=== PATIENT | male | born 1980 | race American Indian/Alaskan Native ===

== ENCOUNTER 2017-07-22 20:28 | Inpatient (IN) | payer MEDICARE ==
--- NOTE | 2017-07-22 20:57 | Emergency Department Report ---
HPI - General Time Seen by Provider: 07/22/17 20:39 - HPI HPI: This is a 36 yo old -[place] male presents to the emergency department by EMS from home after he had some witnessed near syncope or syncopal episode by his . The patient currently is awake and alert and denies any chest pain , headache or any neurological deficits. An EKG was done by EMS that was sent to us that was concerning for a ST elevation TN. However by the time the EKG was visible to us, the patient was in the emergency department so we repeated the EKG here. It was discussed with interventional cardiology who did not feel that this was a typical ST elevation TN since the patient is having no chest pain. We will give a heparin bolus, do a cardiac workup and repeat EKG in 30 minutes. ED Past Medical Hx - Medications Home Medications: Home Medications Medication Instructions Recorded Confirmed Last Taken Type No Known Home Medications [No 07/22/17 07/22/17 Unknown History Reported Home Medications] ED Review of Systems ROS: Stated complaint: NEAR SYNCOPE Other details as noted in HPI Comment: All other systems reviewed and negative Constitutional: denies: chills, fever Eyes: denies: eye pain, eye discharge, vision change ENT: denies: ear pain, throat pain Respiratory: denies: cough, shortness of breath, wheezing Cardiovascular: syncope. denies: chest pain, palpitations Gastrointestinal: denies: abdominal pain, nausea, diarrhea Genitourinary: denies: urgency, dysuria Musculoskeletal: denies: back pain, joint swelling, arthralgia Skin: denies: rash, lesions Neurological: denies: headache, weakness, paresthesias Physical Exam - Physical Exam Physical Exam: GENERAL: The patient is well-developed well-nourished. Patient appears much older than stated age. HENT: Normocephalic. Atraumatic. Patient has moist mucous membranes. Patient is missing teeth and has poor dentition. EYES: Extraocular motions are intact. Pupils equal reactive to light bilaterally. NECK: Supple. Trachea is midline. CHEST/LUNGS: Clear to auscultation. There is no respiratory distress noted. HEART/CARDIOVASCULAR: Regular. There is no tachycardia. There is no gallop rub or murmur. ABDOMEN: Abdomen is soft, nontender. Patient has normal bowel sounds. There is no abdominal distention. SKIN: Skin is warm and dry. NEURO: The patient is awake, alert, and oriented. The patient is cooperative. The patient has no focal neurologic deficits. The patient has normal speech. Cranial nerves II through XII grossly intact. MUSCULOSKELETAL: There is no tenderness or deformity. There is no limitation range of motion. There is no evidence of acute injury. ED Course - Consultations Consultation #1: 07/23/17 01:29 I had spoken to the television receiver analyzer, Dr. Muñoz, shortly after the EMS EKG and the initial EKG here in the emergency department. Despite the ST elevations seen in the inferior and lateral leads, he did not feel that the patient had a STEMI or required emergent heart catheterization. He felt that the EMS EKG and even this first EKG appeared more consistent with possible early pericarditis. The plan was to give the patient a heparin bolus without drip and repeat EKG in 30 minutes to 1 hour. The second EKG still showed some ST elevations, more so in lead 2 and the inferior leads but once again no reciprocal depressions. This EKG was once again shown to Dr. Muñoz who did not feel that it was consistent with a STEMI and thought that this could be more consistent with a early repolarization. The patient has not had any chest pain or shortness of breath throughout his ED course. He has not shown any focal, motor or sensory deficits and his cranial nerves have been intact. Chest x-ray does not show any acute process. CT of the head did not show any bleed, shift, mass or any acute process. However with the syncopal episode and the abnormal EKGs, the patient will be admitted to the hospital for further evaluation and treatment. ED Medical Decision Making - Lab Data Result diagrams: 07/22/17 Unknown 07/22/17 Unknown - EKG Data -: EKG Interpreted by Me EKG shows normal: sinus rhythm, axis, intervals, QRS complexes, ST-T waves ( there is some mild ST elevation to the inferior and lateral leads but no reciprocal depressions. Normal intervals.) Rate: normal - EKG Data When compared to previous EKG there are: previous EKG unavailable Interpretation: other (sinus rhythm, 83 bpm, there is some ST elevation throughout the lateral and inferior leads but no reciprocal depressions.) - Radiology Data Radiology results: report reviewed, image reviewed interpreted by me: Chest x-ray does not show any acute process. There are no pleural effusions, obvious pneumonia and there is no pneumothorax. EXAM: CT HEAD/BRAIN WO CON HISTORY: Syncope TECHNIQUE: CT head without contrast PRIORS: None. FINDINGS: No acute intra-axial or extra-axial hemorrhage is identified. There is no evidence of midline shift or mass effect. The ventricles and sulci are within normal limits. Dominguez-white matter differentiation is intact. No acute parenchymal abnormalities seen. Bony calvarium is grossly intact. Visualized portions of the mastoids and paranasal sinuses are unremarkable. IMPRESSION: Negative CT head Transcribed By: GLEN Dictated By: ISMA MATOS MD Electronically Authenticated By: ISMA MATOS MD Signed Date/Time: 07/22/171916 - Medical Decision Making This patient originally presented for a syncopal or near syncopal episode. Since he has been in the emergency department he has been awake and alert and in no acute distress. He has not complained of any chest pain or any other symptoms at this time. The EKG was sent by EMS prior to arrival that had some concern for ST elevation TN. By the Time we were able to see this EKG he was in the emergency department so we repeated the EKG and once again it showed some concern for ST elevation in the inferior and lateral leads. As per the consultation section, the television receiver analyzer was notified and it was not deemed to be a code STEMI. The patient was given heparin bolus and later EKG was repeated. It was unchanged but once again did not appear to be consistent with a STEMI or need for emergent catheterization. Chest x-ray does not show any acute process. CT head does not show any acute process. Labs up and mostly unremarkable. However the patient will be admitted to the hospital for further evaluation and treatment - Differential Diagnosis TN, PE, CVA, TIA, seizure Critical Care Time: No Critical care attestation.: If time is entered above; I have spent that time in minutes in the direct care of this critically ill patient, excluding procedure time. ED Disposition Clinical Impression: Abnormal EKG Syncope Qualifiers: Syncope type: unspecified Qualified Code(s): R55 - Syncope and collapse Disposition: OP ADMIT IP TO THIS HOSP Is pt being admited?: Yes Does the pt Need Aspirin: Yes Condition: Stable Instructions: Syncope (ED) Time of Disposition: 01:41
[2017-07-22] MEDS ORDERED: HEPARIN 10,000 UNITS/10 ML IV ONE (21:01)
[2017-07-22 21:12] LABS: Basophils % (Auto) 1.6 % (0.0-1.8); Eosinophils % (Auto) 0.9 % (0.0-4.3); Hematocrit 34.3 % (35.5-45.6); Hemoglobin 11.2 gm/dl (11.8-15.2); Mean Corpuscular HGB Conc 33 % (32-34); Mean Corpuscular Hemoglobin 30 pg (28-32); Mean Corpuscular Volume 92 fl (84-94); Platelet Count 206 K/mm3 (140-440); Red Blood Count 3.74 M/mm3 (3.65-5.03); Red Cell Distribution Width 14.3 % (13.2-15.2); White Blood Count 4.6 K/mm3 (4.5-11.0)
[2017-07-22 21:13] LABS: INR 1.15 (0.87-1.13); Partial Thromboplastin Time 24.1 Sec. (24.2-36.6)
[2017-07-22 21:27] LABS: Alanine Aminotransferase 16 units/L (7-56); Albumin 3.7 g/dL (3.9-5); Albumin/Globulin Ratio 1.3 %; Alkaline Phosphatase 44 units/L (35-129); Anion Gap 21 mmol/L; BUN/Creatinine Ratio 10; Blood Urea Nitrogen 7 mg/dL (9-20); Calcium 7.8 mg/dL (8.4-10.2); Carbon Dioxide 21 mmol/L (22-30); Chloride 91.7 mmol/L (98-107); Glucose 134 mg/dL (75-100); Potassium 3.9 mmol/L (3.6-5.0); Sodium 130 mmol/L (137-145); Total Protein 6.6 g/dL (6.3-8.2)
--- NOTE | 2017-07-22 21:57 | XRay Report ---
FINAL REPORT EXAM: XR CHEST 1V AP HISTORY: Chest Pain TECHNIQUE: Single AP view of the chest PRIORS: None. FINDINGS: Cardiac and mediastinal contours are unremarkable. No focal pulmonary infiltrate identified. No pleural fluid collection seen. There is scoliosis of the thoracic spine. Spinal fusion rods are seen from the upper thoracic through lumbar spine. IMPRESSION: No acute abnormality identified in the chest
[2017-07-22] MEDS ORDERED: NACL 0.9% 500 ML 500 ML IV ONE (22:12)
--- NOTE | 2017-07-22 23:49 | Cat Scan Report ---
FINAL REPORT EXAM: CT HEAD/BRAIN WO CON HISTORY: Syncope TECHNIQUE: CT head without contrast PRIORS: None. FINDINGS: No acute intra-axial or extra-axial hemorrhage is identified. There is no evidence of midline shift or mass effect. The ventricles and sulci are within normal limits. Dominguez-white matter differentiation is intact. No acute parenchymal abnormalities seen. Bony calvarium is grossly intact. Visualized portions of the mastoids and paranasal sinuses are unremarkable. IMPRESSION: Negative CT head
[2017-07-23] MEDS ORDERED: BABY ASPIRIN PO ONE (01:41)
[2017-07-23 02:37] LABS: Urine Drugs of Abuse Note Disclamer
[2017-07-23 02:44] LABS: Bilirubin,Urine NEG (Negative); Blood,Urine NEG (Negative); Ketones,Urine NEG (Negative); Leukocyte Esterase,Urine NEG (Negative); Nitrite,Urine NEG (Negative); Protein,Urine <15 mg/dL mg/dL (Negative); RBC,Urine < 1.0 /HPF (0.0-6.0); Urobilinogen,Urine < 2.0 mg/dL (<2.0)
[2017-07-23] MEDS ORDERED: MILK OF MAGNESIA PO PRN (02:46)
[2017-07-23] MEDS ORDERED: NACL 0.9% 500 ML 500 ML ONE (02:46)
[2017-07-23] MEDS ORDERED: PERCOCET 5/325 PO PRN (02:46)
[2017-07-23] MEDS ORDERED: TYLENOL PO PRN (02:46)
[2017-07-23] MEDS ORDERED: DULCOLAX PR PRN (02:46)
[2017-07-23] MEDS ORDERED: ZOFRAN IV PRN (02:46)
[2017-07-23 02:47] LABS: WBC,Urine < 1.0 /HPF (0.0-6.0)
--- NOTE | 2017-07-23 05:46 | History and Physical Report ---
History of Present Illness Date of examination: 07/23/17 Date of admission: 07/23/17 02:46 History of present illness: 36-year-old man with no medical problems since emergency room because today he felt dizzy and had a syncopal episode, it's unclear how long it lasted for. In the emergency room he had an abnormal EKG, code STEMI was called. His EKGs were reviewed by mushroom farmer, was thought that it was a repolarization Review Of Systems: Constitutional: no weight loss Ears, eyes, nose, mouth and throat: no nasal congestion, no nasal discharge, no sinus pressure, blurry vision, diplopia Neck: No neck pain or rigidity. Cardiovascular: no chest pain, orthopnea, palpitations Respiratory: No shortness of breath, cough Gastrointestinal: no abdominal pain, hematochezia Genitourinary : no dysuria, frequency , hematuria Musculoskeletal: no muscle ache Integumentary: no rash, no pruritis Neurological: no parathesias, focal weakness Endocrine: no cold or heat intolerance, no polyuria or polydipsia Hematologic/Lymphatic: no easy bruising, no easy bleeding, no gland swelling Allergic/Immunologic: no urticaria, no angioedema. PAST MEDICAL HISTORY:none PAST SURGICAL HISTORY:back FAILY HISTORY: Hypertension SOCIAL HISTORY:Denies alcohol, tobacco, drugs Medications and Allergies Allergies Allergy/AdvReac Type Severity Reaction Status Date / Time No Known Allergies Allergy Unverified 07/22/17 21:08 Home Medications Medication Instructions Recorded Confirmed Last Taken Type No Known Home Medications [No 07/22/17 07/22/17 Unknown History Reported Home Medications] Active Meds: Active Medications Acetaminophen (Tylenol) 650 mg PO Q4H PRN PRN Reason: Pain MILD(1-3)/Fever >100.5/ADAMSON Bisacodyl (Dulcolax) 10 mg SC QDAY PRN PRN Reason: Constipation unrelieved by MOM Enoxaparin Sodium (Lovenox) 40 mg SUB-Q QDAY LANI Sodium Chloride (Nacl 0.9% 1000 Ml) 1,000 mls @ 100 mls/hr IV DIRECT LANI Influenza Virus Vaccine Quadrival (Fluarix Quad [id number](36 Mos+) 0.5 ml IM .ONCE ONE Stop: 07/23/17 12:01 Magnesium Hydroxide (Milk Of Magnesia) 30 ml PO Q4H PRN PRN Reason: Constipation Ondansetron HCl (Zofran) 4 mg IV Q8H PRN PRN Reason: N/V unrelieved by Reglan Oxycodone/Acetaminophen (Percocet 5/325) 1 tab PO Q6H PRN PRN Reason: Pain, Moderate (4-6) Exam - Physical Exam Narrative exam: Gen. appearance: Looks older than stated age, Patient lying in bed in no acute distress HEENT: Normocephalic/atraumatic, pupils equal round reactive to light, extra alkaline movement intact, no scleral icterus, no JVD or thyromegaly or nodule, neck is supple, mucous membrane moist, no erythema or exudate Heart: S1-S2, regular rate and rhythm Lungs: Clear to auscultation bilateral breathing comfortable Abdomen: Positive bowel sounds, nontender, nondistended, no organomegaly Extremities: No edema, cyanosis, clubbing Neuro:: Oriented 3 , cranial nerves II-12 intact, speech, motor intact Skin: No rash, nodules, warm dry - Constitutional Vitals: Temp Pulse Resp BP Pulse Ox 97.6 F 77 18 112/85 100 07/23/17 04:10 07/23/17 04:10 07/23/17 04:10 07/23/17 04:10 07/23/17 04:10 Results - Labs CBC & Chem 7: 07/22/17 Unknown 07/22/17 Unknown Labs: Abnormal lab results 07/22/17 07/22/17 07/22/17 Range/Units Unknown Unknown Unknown Hgb 11.2 L (11.8-15.2) gm/dl Hct 34.3 L (35.5-45.6) % Lymph % (Auto) 55.1 H (13.4-35.0) % Seg Neutrophils % 35.3 L (40.0-70.0) % Seg Neutrophils # 1.6 L (1.8-7.7) K/mm3 PT 15.3 H (12.2-14.9) Sec. INR 1.15 H (0.87-1.13) APTT 24.1 L (24.2-36.6) Sec. Sodium 130 L (137-145) mmol/L Chloride 91.7 L (98-107) mmol/L Carbon Dioxide 21 L (22-30) mmol/L BUN 7 L (9-20) mg/dL Creatinine 0.7 L (0.8-1.5) mg/dL Glucose 134 H (75-100) mg/dL Calcium 7.8 L (8.4-10.2) mg/dL Albumin 3.7 L (3.9-5) g/dL Ur Specific Energy (1.003-1.030) 07/23/17 Range/Units 02:35 Hgb (11.8-15.2) gm/dl Hct (35.5-45.6) % Lymph % (Auto) (13.4-35.0) % Seg Neutrophils % (40.0-70.0) % Seg Neutrophils # (1.8-7.7) K/mm3 PT (12.2-14.9) Sec. INR (0.87-1.13) APTT (24.2-36.6) Sec. Sodium (137-145) mmol/L Chloride (98-107) mmol/L Carbon Dioxide (22-30) mmol/L BUN (9-20) mg/dL Creatinine (0.8-1.5) mg/dL Glucose (75-100) mg/dL Calcium (8.4-10.2) mg/dL Albumin (3.9-5) g/dL Ur Specific Energy 1.001 L (1.003-1.030) - Imaging and Cardiology EKG: image reviewed Chest x-ray: image reviewed CT Scan - head: report reviewed Assessment and Plan Assessment Syncope Abnormal EKG Plan Admit to medicine Check cardiac enzymes, echo,carotid Doppler, consult cardiology DVT prophylaxis
[2017-07-23 09:51] LABS: Anion Gap 19 mmol/L; BUN/Creatinine Ratio 12; Blood Urea Nitrogen 7 mg/dL (9-20); Calcium 8.8 mg/dL (8.4-10.2); Carbon Dioxide 26 mmol/L (22-30); Chloride 98.7 mmol/L (98-107); Glucose 80 mg/dL (75-100); Potassium 4.8 mmol/L (3.6-5.0); Sodium 139 mmol/L (137-145)
[2017-07-23] MEDS ORDERED: LOVENOX SUB-Q SCH (10:00)
--- NOTE | 2017-07-23 11:57 | Consultation ---
Medications and Allergies Allergies Allergy/AdvReac Type Severity Reaction Status Date / Time No Known Allergies Allergy Unverified 07/22/17 21:08 Home Medications Medication Instructions Recorded Confirmed Last Taken Type No Known Home Medications [No 07/22/17 07/22/17 Unknown History Reported Home Medications] Active Meds: Active Medications Acetaminophen (Tylenol) 650 mg PO Q4H PRN PRN Reason: Pain MILD(1-3)/Fever >100.5/ADAMSON Aspirin (Baby Aspirin) 81 mg PO QDAY [facility] Bisacodyl (Dulcolax) 10 mg UT QDAY PRN PRN Reason: Constipation unrelieved by MOM Enoxaparin Sodium (Lovenox) 40 mg SUB-Q QDAY LANI Last Admin: 07/23/17 11:01 Dose: 40 mg Sodium Chloride (Nacl 0.9% 1000 Ml) 1,000 mls @ 100 mls/hr IV DIRECT LANI Influenza Virus Vaccine Quadrival (Fluarix Quad [id number](36 Mos+) 0.5 ml IM .ONCE ONE Stop: 07/23/17 12:01 Magnesium Hydroxide (Milk Of Magnesia) 30 ml PO Q4H PRN PRN Reason: Constipation Ondansetron HCl (Zofran) 4 mg IV Q8H PRN PRN Reason: N/V unrelieved by Reglan Oxycodone/Acetaminophen (Percocet 5/325) 1 tab PO Q6H PRN PRN Reason: Pain, Moderate (4-6) Physical Examination Vital Signs Temp Pulse BP Pulse Ox 98 F 85 105/68 100 07/22/17 21:00 07/22/17 21:00 07/22/17 21:00 07/22/17 21:00 Results 07/22/17 Unknown 07/23/17 09:06 Cardiac Enzymes 07/22/17 Range/Units Unknown AST 29 (5-40) units/L Coagulation 07/22/17 Range/Units Unknown PT 15.3 H (12.2-14.9) Sec. INR 1.15 H (0.87-1.13) APTT 24.1 L (24.2-36.6) Sec. CBC 07/22/17 Range/Units Unknown WBC 4.6 (4.5-11.0) K/mm3 RBC 3.74 (3.65-5.03) M/mm3 Hgb 11.2 L (11.8-15.2) gm/dl Hct 34.3 L (35.5-45.6) % Plt Count 206 (140-440) K/mm3 Lymph # 2.5 (1.2-5.4) K/mm3 [place] # 0.3 (0.0-0.8) K/mm3 Eos # 0.0 (0.0-0.4) K/mm3 Baso # 0.1 (0.0-0.1) K/mm3 Comprehensive Metabolic Panel 07/22/17 07/23/17 Range/Units Unknown 09:06 Sodium 130 L 139 D (137-145) mmol/L Potassium 3.9 4.8 D (3.6-5.0) mmol/L Chloride 91.7 L 98.7 (98-107) mmol/L Carbon Dioxide 21 L 26 (22-30) mmol/L BUN 7 L 7 L (9-20) mg/dL Creatinine 0.7 L 0.6 L (0.8-1.5) mg/dL Glucose 134 H 80 (75-100) mg/dL Calcium 7.8 L 8.8 (8.4-10.2) mg/dL AST 29 (5-40) units/L ALT 16 (7-56) units/L Alkaline Phosphatase 44 (35-129) units/L Total Protein 6.6 (6.3-8.2) g/dL Albumin 3.7 L (3.9-5) g/dL Assessment and Plan full consult dictated thx
[2017-07-23] MEDS ORDERED: Fluarix Quad 2017-2018(36 MOS+ IM ONE (12:00)
[2017-07-23] MEDS: NACL 0.9% 1000 ML 1,000 ML IV SCH (13:03)
--- NOTE | 2017-07-23 18:56 | Event Note ---
Date: 07/23/17 Patient presented with dizziness, syncope. To rule out acute coronary syndrome.
--- NOTE | 2017-07-23 20:57 | Consultation ---
REFERRING PHYSICIAN: Dr. Libertad Álvarez, Hospitalist Service. REASON FOR CONSULTATION: ____ syncope, mildly abnormal EKG. HISTORY OF PRESENT ILLNESS: The patient is a very pleasant 36-year-old -Turk[place] male, who presents with a witnessed near syncopal episode by his . He denies any chest pain or headache. He is seen in the echo lab. He is currently without any symptoms. No abdominal pain, headache, nausea, vomiting, fevers, chills, rashes. No cold or heat intolerance. No hematochezia or melena. No headache or blurred vision. No known home medications. No real medical history, although he does ____ primary often. SOCIAL HISTORY: Does smoke marijuana. No other drugs or alcohol use. FAMILY HISTORY: No family history of premature heart disease or sudden cardiac . ALLERGIES: No known drug, food, or environment allergies. MEDICATIONS: No medications. Inpatient medications reviewed. PHYSICAL EXAMINATION: VITAL SIGNS: Blood pressure is 120/80. He is afebrile. Tele reveals sinus rhythm, no dysrhythmias. O2 sats 100% on room air. HEENT: Sclerae icteric. PERRLA. NECK: Supple. No mass or JVD. CHEST: Clear to auscultation bilaterally. Good air movement. CARDIOVASCULAR: Regular rate and rhythm. S1, S2. ABDOMEN: Soft, nontender, nondistended. Normoactive bowel sounds in 4 quadrants. No mass or bruits. EXTREMITIES: No cyanosis, clubbing, edema. Good peripheral pulses. SKIN: Warm, dry, and intact. No rashes. LABORATORY DATA: EKG shows mild diffuse ST elevation with SD elevation in aVR. No reciprocal changes. This is shown on multiple EKGs. Cardiac enzymes are negative x 2. D-dimer is negative. Potassium is 4.8, creatinine is 0.6. Chest x-ray is unremarkable. ASSESSMENT: In summary, the patient is a pleasant 36-year-old -Turkmen gentleman. Presyncope of unclear etiology. Abnormal EKG, but mildly abnormal EKG, questionable pericarditis, but really no symptoms. To followup echocardiogram, stress test. Follow telemetry. Continue current medications including Lovenox and aspirin. He is clinically stable, entirely asymptomatic. Further plans contingent on these results. Thank you for this consultation. I will be happy to follow along with you. JOB# [id number] SBBreezy/ROMINA
[2017-07-24] MEDS: NACL 0.9% 1000 ML 1,000 ML IV SCH (00:36)
[2017-07-24 07:44] LABS: Basophils % (Auto) 1.9 % (0.0-1.8); Eosinophils % (Auto) 0.9 % (0.0-4.3); Hemoglobin 12.1 gm/dl (11.8-15.2); Mean Corpuscular HGB Conc 33 % (32-34); Mean Corpuscular Hemoglobin 30 pg (28-32); Mean Corpuscular Volume 92 fl (84-94); Platelet Count 198 K/mm3 (140-440); Red Blood Count 4.04 M/mm3 (3.65-5.03); Red Cell Distribution Width 14.7 % (13.2-15.2); White Blood Count 4.6 K/mm3 (4.5-11.0)
[2017-07-24 08:05] LABS: Anion Gap 20 mmol/L; BUN/Creatinine Ratio 10; Blood Urea Nitrogen 7 mg/dL (9-20); Calcium 8.2 mg/dL (8.4-10.2); Carbon Dioxide 22 mmol/L (22-30); Chloride 100.8 mmol/L (98-107); Glucose 77 mg/dL (75-100); Potassium 3.9 mmol/L (3.6-5.0); Sodium 139 mmol/L (137-145)
[2017-07-24] MEDS ORDERED: LEXISCAN IV ONE ×2 (08:13→08:18)
[2017-07-24] MEDS ORDERED: BABY ASPIRIN PO SCH (10:00)
--- NOTE | 2017-07-24 12:36 | Event Note ---
Date: 07/24/17 stress mpi this am- 1. no evidence of ischemia or prior infarct 2. nl lv fxn stable cv status
--- NOTE | 2017-07-24 13:01 | Discharge Summary ---
Providers - Providers Date of Admission: 07/23/17 02:46 Date of discharge: 07/24/17 Attending physician: CESIA VERDE 07/23/17 02:46 Consult to Physician [CONS] Routine Consulting Provider: SVEN MUÑOZ Reason For Exam: ab ekg Place consult to:: [facility] heart Notified:: y Comment:: added to list Dr Muñoz on floor Primary care physician: LEAN MANUFACTURING LEADER Hospitalization Condition: Fair Hospital course: Patient is 36 yo alcohol abuse, presented with dizziness, syncope. he had abnormal EKG and code STEMI was called. He was evaluated by diploma pharmacy technician who reviewed EKG and stated this is not STEMI but repolarization. He was given Aspirin and admitted to rule out acute coronary syndrome. Stress test done following day was normal so discharge orders put in. However , was told by Nurse that patient absconded from hospital. He left without discharge instructions or prescription. Disposition: - TO HOME OR SELFCARE - Discharge Diagnoses (1) Dizziness Status: Acute (2) Left against medical advice Status: Acute (3) Marijuana abuse Status: Chronic (4) Abnormal EKG Status: Acute (5) Syncope Status: Acute Qualifiers: Syncope type: vasovagal syncope Qualified Code(s): R55 - Syncope and collapse Core Measure Documentation - Palliative Care Palliative Care/ Comfort Measures: Not Applicable - Core Measures Any of the following diagnoses?: none Exam - Constitutional Vitals: Temp Pulse Resp BP Pulse Ox 98.5 F 61 18 126/88 99 07/24/17 07:36 07/24/17 07:36 07/24/17 07:36 07/24/17 07:36 07/24/17 00:53 General appearance: Present: no acute distress - EENT Eyes: Present: PERRL - Neck Neck: Present: supple - Respiratory Respiratory effort: normal Respiratory: bilateral: CTA - Cardiovascular Rhythm: regular Heart Sounds: Present: S1 & S2 - Extremities Extremities: No edema - Abdominal General gastrointestinal: Present: soft - Musculoskeletal Musculoskeletal: strength equal bilaterally - Neurologic Neurologic: moves all extremities Plan Activity: no restrictions Diet: regular Additional Instructions: 1.Follow up with PCP or [facility] in 1 week. Follow up with: PRIMARY CARE, [Primary Care Provider] - 3-5 Days Prescriptions: Famotidine [Pepcid] 20 mg PO BID #30 tablet
[2017-07-24 15:15] VITALS: BP 152/99
--- NOTE | 2017-07-24 18:15 | Treadmill Report ---
NUCLEAR PERFUSION SCAN REFERRING PHYSICIAN: Hospitalist service. PROTOCOL: The patient was brought to the stress lab in a postoperative state, given 10 mCi of technetium 99m at rest. The patient underwent rest imaging. The patient underwent Lexiscan stress test. At peak stress, the patient was given 26 mCi of technetium 99m. Shortly thereafter, the patient was stress imaging. Raw imaging reveals mild GI artifact, no significant motion artifact. SPECT imaging examined came in the horizontal long axis, vertical long axis, short axis views. There is normal homogenous uptake of all reported segments. No evidence of a significant fixed or reversible perfusion defects suggestive of prior infarction or ischemia. Gated wall motion reveals normal systolic thickening, calculated ejection fraction 67%. No TID. CONCLUSIONS: 1. Normal myocardial perfusion scan without evidence of active ischemia or prior active ischemia or prior infarction. 2. Normal left ventricular systolic performance without evidence of transient ischemic dilatation or stress-induced segmental wall motion abnormalities. JOB# [id number] JAYSON/ROMINA
--- NOTE | 2017-07-29 14:24 | Query- General ---
Thomas Ward Stew Date:___07/29/17 Corrosion Control Engineer/CDS:___Rosalba / Corbin Phone#:__[phone] Exercise your independent professional judgment when responding to this query. Questions asked do not imply a particular answer is desired or expected. We greatly appreciate your clarification on this issue. Clinical Documentation States: 36 year old male was admitted on 07/23/17 The H&P (Dr. sanabria) states " 36-year-old man with no medical problems since emergency room because today he felt dizzy and had a syncopal episode Assessment Syncope Abnormal EKG " The event note (Dr. Muñoz 07/24/17) states " no evidence of ischemia or prior infarct" Clinical Findings Show (include reference to source document): Given the above clinical scenario can you please provide an appropriate diagnosis based on your knowledge of the patient: PHYSICIAN RESPONSE: Please clarify the etiology of syncope: Vasovagal syncope Present on Admission: [x ] Yes (Y) [ ] Clinically undeterminable (W) [ ]No(N) Please also document response in your Progress Notes and/or Discharge Summary and indicate if the condition was present on admission. PREM
== END 2017-07-24 15:10 | disposition home or self-care (01) | DRG 312 ==
LOC: ED 20:28 → 4A 07-23 02:46
PROVIDERS: ADMIT Internal Medicine; ATTEND Internal Medicine
PROC: 3E0234Z Introduction of Serum, Toxoid and Vaccine into Muscle, Percutaneous Approach (ICD-10-PCS; principal; 2017-07-23)
DX: R55 Syncope and collapse (principal); R94.31 Abnormal electrocardiogram [ECG] [EKG]; F12.90 Cannabis use, unspecified, uncomplicated; Z23 Encounter for immunization; Z82.49 Family history of ischemic heart disease and other diseases of the circulatory system
CPT/HCPCS: 36415; 70450; 71010; 78452; 80048; 80053; 80307; 81001; 84484; 85025; 85379; 85610; 85730; 90471; 90686; 93005; 93010; 93017; 93306; 96374; 99406; A9502; G0008; J1644; J1650; J2785; J7030; J7040